=== PATIENT | male | born 1960 | race Hispanic/Latino ===

== ENCOUNTER 2024-07-07 18:11 | Emergency (ER) | payer OTHER ==
[2024-07-07] MEDS ORDERED: Boostrix 0.5 ML (Tdap) VIAL (>/=7 yrs of age) ONE (19:01)
[2024-07-07] MEDS ORDERED: Sulfameth/Trimethoprim DS 800-160mg TAB ONE (20:33)
[2024-07-07] MEDS ORDERED: HYDROcodone/Acetaminophen 10/325 mg Tablet ONE (20:34)
== END 2024-07-07 20:37 | disposition home or self-care (01) ==
LOC: ERS 18:11
DX: S61.412A Laceration without foreign body of left hand, initial encounter (principal); I10 Essential (primary) hypertension; Z23 Encounter for immunization; W26.8XXA Contact with other sharp object(s), not elsewhere classified, initial encounter
CPT/HCPCS: 12001; 90471; 90715